=== PATIENT | male | born 1960 | race Asian ===

== ENCOUNTER 2017-06-17 12:17 | Emergency (ER) | payer OTHER ==
[2017-06-17] MEDS: DIPHTH/TET/ACEL PERTUSS (ADULT) 0.5 ML VIAL IM* (12:45)
== END 2017-06-17 14:39 | disposition home or self-care (01) ==
LOC: FTE 12:17
DX: S42.022A Displaced fracture of shaft of left clavicle, initial encounter for closed fracture (principal); S20.211A Contusion of right front wall of thorax, initial encounter; S09.90XA Unspecified injury of head, initial encounter; S00.01XA Abrasion of scalp, initial encounter; R51 Headache; W01.198A Fall on same level from slipping, tripping and stumbling with subsequent striking against other object, initial encounter; Y92.9 Unspecified place or not applicable; Z23 Encounter for immunization
CPT/HCPCS: 70450; 71100; 73030; 90471; 90715; 99284-25